=== PATIENT | female | born 1970 | race African-American/Black ===

== ENCOUNTER 2018-01-24 17:55 | Emergency (ER) | payer OTHER ==
[~2018-01-24] VITALS: Ht 175.3 cm; Wt 77.0 kg
[2018-01-24 18:01] VITALS: BP 142/76; PULSE 93; RESP 16; TEMP 98.5; O2SAT 100
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
[2018-01-24] MEDS ORDERED: DICL75TA PO (19:20)
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
== END 2018-01-24 19:45 | disposition home or self-care (01) ==
LOC: PHEFT 17:55
DX: S80.12XA Contusion of left lower leg, initial encounter (principal); V23.4XXA Motorcycle driver injured in collision with car, pick-up truck or van in traffic accident, initial encounter
CPT/HCPCS: 73590; 99283; E0113